=== PATIENT | male | born 1975 | race Hispanic/Latino ===

== ENCOUNTER 2024-08-12 18:04 | Emergency (ER) | payer OTHER ==
[2024-08-12 18:57] LABS: Specific Gravity 1.027 (1.005-1.030); Sqamous Epithelial <5 /HPF (None Seen); Urine Bacteria None Seen /HPF (<20); Urine Bilirubin NEGATIVE (Negative); Urine Blood 3+ (OVER) (Negative); Urine Clarity Extremely Turbid (Clear); Urine Color Light-Orange (Yellow); Urine Crystals Unidentified Few /HPF (None Seen); Urine Culture Reflex Order REFLEXED; Urine Glucose NEGATIVE (Negative); Urine Ketones 2+ (Negative); Urine Microscopic Reflex YN ORDER UMIC; Urine Mucus Slight /HPF (None Seen); Urine Nitrite 1+ (Negative); Urine Protein 2+ (Negative); Urine RBC >50 /HPF (None Seen); Urine Urobilinogen 2+ (Normal); Urine WBC >50 /HPF (<5); Urine WBC Clump Many /HPF (None Seen); Urine Yeast (Budding) Few /HPF (None Seen)
[2024-08-12 19:11] LABS: Albumin 3.4 g/dL (3.4-5.0); Albumin/Globulin Ratio 0.9 (1.1-1.8); Anion Gap 8.5 mEq/L (5.0-15.0); Bilirubin Total 0.9 mg/dL (0.2-1.0); Potassium 3.5 mEq/L (3.5-5.1); Protein, Total 7.4 g/dL (6.4-8.2)
[2024-08-12] MEDS ORDERED: NA CHLORIDE 0.9% 1,000 ML ONE (19:11)
[2024-08-12] MEDS ORDERED: ACETAMINOPHEN 500 MG TAB ONE (19:11)
[2024-08-12 19:13] LABS: Absolute Basophils 0.1 K/uL (0-0.5); Absolute Lymphocytes (CBC) 1.3 K/uL (0.7-4.9); Absolute Monocytes 1.6 K/uL (0.1-1.3); Absolute Neutrophil 20.1 K/uL (1.8-8.0); Basophils % 0.4 % (0-1.3); Eosinophils % 0.1 % (0-4.4); Hematocrit 34.5 % (39.6-49.0); Hemoglobin 10.4 g/dL (13.6-17.9); Lymphocytes % 5.7 % (15.3-44.8); MCV 66.8 fL (80-100); MPV 7.3 fL (7.6-11.3); Monocytes % 6.7 % (3.3-12.3); Neutrophils % 87.1 % (41.7-73.7); Platelets 383 thou/uL (152-406); RBC Red Blood Cell Count 5.17 M/uL (4.33-5.43); Red Cell Distribution Width 18.3 % (12.1-15.2)
--- NOTE | 2024-08-12 19:48 | RAD REPORT ---
EXAMINATION: CT ABDOMEN AND PELVIS WITH CONTRAST CLINICAL INDICATION: Male, 49 years old.ABD PAIN TECHNIQUE: CT abdomen and pelvis was performed, after the administration of IV contrast, as per [facility]. Axial, sagittal and coronal reconstructions were obtained. One or more of the following dose reduction techniques were used: Automated exposure control, adjustment of the mA and/o r kV according to patient size, and/or iterative reconstruction. Unless otherwise specified, incidental findings do not require dedicated imaging follow-up. [id number]. COMPARISON: No prior exam. FINDINGS: LOWER CHEST: The visualized lung bases are clear. LIVER: Hepatic steatosis. Low-density lesion in the right hepatic lobe measuring 11 mm is too small t o characterize. GALLBLADDER/BILE DUCT: Cholecystomy.? PANCREAS: No significant abnormality. SPLEEN: Low-density splenic lesion which is most consistent with a simple cyst. ADRENALS: Normal; no mass. KIDNEYS AND URETERS: Right upper pole renal cyst. No hydronephrosis. GASTROINTESTINAL TRACT: Status post Brenda-en-Y gastric bypass. . There is mild fluid present within th e excluded stomach but no bowel obstruction. PERITONEUM: No ascites. Fat-containing ventral hernias. Small fat-containing umbilical hernia. LYMPH NODES: No lymphadenopathy. ABDOMINAL AORTA AND OTHER VESSELS: Normal caliber aorta and IVC. URINARY BLADDER: Circumferential thickening of the bladder may be from chronic bladder outlet obstruc tion. REPRODUCTIVE ORGANS: Mild prostatomegaly. Prostate measures 5.5 cm in transverse dimension. MUSCULOSKELETAL: No acute or suspicious osseous abnormality. Severe degenerative changes are present at L3-4. ADDITIONAL FINDINGS: None. IMPRESSION: No acute or significant abnormalities seen in the abdomen or pelvis. Circumferentially thickened bladder which may be from chronic obstruction. Mild prostatomegaly. No hy dronephrosis. Brenda-en-Y gastric bypass without competition features.
[2024-08-12 20:34] LABS: Anisocytosis 1+; Blood Morphology Comment NOTED (NOT SEEN); Microcytosis 1+; Ovalocytes SLIGHT; Platelet Estimate ADEQ; Poikilocytosis SLIGHT; Polychromasia SLIGHT; White Blood Cell Scan OK (OK)
[2024-08-12] MEDS ORDERED: CEFTRIAXONE 1000 MG/VIAL ONE (20:41)
[2024-08-12 20:55] LABS: PT Prothrombin Time 16.5 SECONDS (9.4-12.5); PTT, Activated Partial Thromb 35.3 SECONDS (24.3-36.9); Protime INR 1.49
--- NOTE | 2024-08-12 21:42 | ER ---
Nurse's Notes [facility] Name: Greg Mcconnell Age: 49 yrs Sex: Male : 1975 Arrival Date: 08/12/2024 Time: 18:04 Bed 14 Private MD: Diagnosis: UTI/ Urinary tract infection, site not specified;Elevated white blood cell count Presentation: 08/12 18:10 Chief complaint: Patient states: had a tummy tuck years ago, has to wear a tight belt ko1 and I am having a hard time peeing. Coronavirus screen: At this time, the client does not indicate any symptoms associated with coronavirus-19. Ebola Screen: No symptoms or risks identified at this time. Initial Sepsis Screen: Does the patient meet any 2 criteria? No. Patient's initial sepsis screen is negative. Does the patient have a suspected source of infection? No. Patient's initial sepsis screen is negative. Risk Assessment: Do you want to hurt yourself or someone else? Patient reports no desire to harm self or others. Onset of symptoms was August 12, 2024. 18:10 Method Of Arrival: Wheelchair ko1 18:10 Acuity: YAMINI 3 ko1 Triage Assessment: 18:14 General: Appears in no apparent distress. Behavior is calm, cooperative, appropriate ko1 for age. Pain: Complains of pain in back and pelvis. Historical: - Allergies: 18:14 No Known Allergies; ko1 - PMHx: 18:14 Diabetes mellitus; Hypertensive disorder; ko1 - PSHx: 18:14 tummy tuck; Cholecystectomy; skin removal; gastric bypass; ko1 - Immunization history:: Adult Immunizations up to date. - Infectious Disease History:: Denies. - Social history:: Smoking status: Patient denies any tobacco usage or history of. Screenin:30 [facility] ED Fall Risk Assessment (Adult) History of falling in the last 3 months, tm6 including since admission No falls in past 3 months (0 pts) Confusion or Disorientation No (0 pts) Intoxicated or Sedated No (0 pts) Impaired Gait Yes (1 pt) Mobility Assist Device Used Yes (1 pt) Altered Elimination No (0 pt) Score/Fall Risk Level 0 - 2 = Low Risk Oriented to surroundings, Maintained a safe environment, Educated pt \T\ family on fall prevention, incl call for assistance when getting out of bed. Abuse screen: Denies threats or abuse. Denies injuries from another. Nutritional screening: No deficits noted. Tuberculosis screening: No symptoms or risk factors identified. Assessment: 18:30 General: Appears in no apparent distress. Behavior is calm, cooperative. Pain: tm6 Complains of pain in pelvis Pain currently is 4 out of 10 on a pain scale. Neuro: Level of Consciousness is awake, alert, obeys commands, Oriented to person, place, time, situation. Cardiovascular: Patient's skin is warm and dry. Respiratory: Airway is patent Respiratory effort is even, unlabored, Respiratory pattern is regular, symmetrical. GI: No signs and/or symptoms were reported involving the gastrointestinal system. Abdomen is obese. : Reports burning with urination. EENT: No signs and/or symptoms were reported regarding the EENT system. Derm: No signs and/or symptoms reported regarding the dermatologic system. Musculoskeletal: No signs and/or symptoms reported regarding the musculoskeletal system. Vital Signs: 18:10 BP 134 / 77; Pulse 102; Resp 17; Temp 97; Pulse Ox 98% ; ko1 19:00 BP 118 / 62; Pulse 89; Resp 16; Pulse Ox 98% ; me1 20:00 BP 126 / 59; Pulse 88; Resp 16; Pulse Ox 97% ; me1 21:00 BP 121 / 54; Pulse 84; Resp 16; Pulse Ox 98% ; me1 22:05 BP 124 / 55; Pulse 84; Resp 16; Temp 98.4; Pulse Ox 97% ; me1 ED Course: 18:07 Patient arrived in ED. ra3 18:12 Jennifer Jones FNP-C is [facility]. kb 18:12 Darío Lloyd MD is Attending Physician. kb 18:14 Triage completed. ko1 18:14 Arm band placed on right wrist. Patient placed in an exam room, Patient notified of ko1 wait time. 18:30 Patient has correct armband on for positive identification. Bed in low position. Call tm6 light in reach. Side rails up X 1. Provided Education on: use of call padgett. Client placed on continuous cardiac and pulse oximetry monitoring. NIBP monitoring applied. Pulse ox on. NIBP on. Door closed. Noise minimized. 18:48 Ike Brown RN is Primary Nurse. tm6 18:48 Inserted saline lock: 20 gauge in right antecubital area, using aseptic technique. tm6 Blood collected. Flushed with 10 mL NS. 18:48 CBC with Diff Sent. tm6 18:48 CMP Sent. tm6 18:48 Urinalysis w/ reflexes Sent. tm6 19:07 Urine Culture Sent. tm6 19:27 CT Abd/Pelvis - IV Contrast Only In Process Unspecified. EDMS 20:38 by me, sent to lab. First set of blood cultures drawn by me. me1 20:41 Blood Culture Adult (2) Sent. me1 20:41 Lactate w/ 2H reflex if indic. Sent. me1 20:41 Protime (+inr) Sent. me1 20:41 Ptt, Activated Sent. me1 20:45 Second set of blood cultures drawn by me. me1 21:18 EKG done, by ED staff, reviewed by Jennifer SPRAGUE. oe 22:07 No provider procedures requiring assistance completed. IV discontinued, intact, me1 bleeding controlled, No redness/swelling at site. Pressure dressing applied. Administered Medications: 19:14 Drug: NS 0.9% IV 1000 ml IV at 1 bolus Per protocol; to be given as a bolus over 60 tm6 minutes Route: IV; Rate: 1 bolus; Site: right antecubital; 22:06 Follow up: Response: No adverse reaction; IV Status: Completed infusion; IV Intake: me1 1000ml 19:14 Drug: Acetaminophen PO 1000 mg PO once Route: PO; tm6 20:42 Follow up: Response: No adverse reaction me1 20:48 Drug: Rocephin IV 1 grams IV at calculated rate once; give after blood cultures me1 obtained Route: IV; Rate: calculated rate; Site: right antecubital; 20:50 Follow up: Response: No adverse reaction; IV Status: Completed infusion me1 Medication: 18:30 VIS not applicable for this client. tm6 Intake: 22:06 IV: 1000ml; Total: 1000ml. me1 Outcome: 21:40 Discharge ordered by . gwyn 22:07 Discharged to home via wheelchair, with family, me1 22:07 Condition: stable 22:07 Discharge instructions given to patient, family, Instructed on discharge instructions, follow up and referral plans. medication usage, Demonstrated understanding of instructions, follow-up care, medications, Prescriptions given X 1, 22:07 Patient left the ED. me1 Addendum: 08/15/2024 18:44 Addendum: Culture Results: Positive urine culture. No further action required. Other: s s called and spoke with pt who states he feels 100% better, has no complaints at this time. OK with darío page to continue with initial discharge instructions. . Signatures: Dispatcher [employer] EDMS Jennifer Jones, HEDGE FUND ACCOUNTANT-C HEDGE FUND ACCOUNTANT-CkAnayeli Ghosh, RN RN Agus Summers Kathy RN RN ko1 Anabelle Curz RN PAIGE me1 Ike Brown RN RN 6 Lucita Rayo ra3 Corrections: (The following items were deleted from the chart) 08/12 18:16 18:14 PMHx: Hypothyroidism; ko1 ko1 18:16 18:14 PMHx: Hypothyroidism; ko1 ko1
--- NOTE | 2024-08-12 21:42 | EDPHYS ---
Physician Documentation [facility] Name: Greg Mcconnell Age: 49 yrs Sex: Male : 1975 Arrival Date: 08/12/2024 Time: 18:04 Bed 14 Private MD: ED Physician Darío Lloyd HPI: 08/12 18:57 This 49 yrs old Male presents to ER via Wheelchair with complaints of Urinary kb Problem. 18:57 Pt is a 49 year old male who presents for urinary frequency, dysuria, abd pain, and kb urinary incontinence that started this morning. States he has chronic back pain that is unchanged. Denies fever. . Historical: - Allergies: 18:14 No Known Allergies; ko1 - PMHx: 18:14 Diabetes mellitus; Hypertensive disorder; ko1 - PSHx: 18:14 tummy tuck; Cholecystectomy; skin removal; gastric bypass; ko1 - Immunization history:: Adult Immunizations up to date. - Infectious Disease History:: Denies. - Social history:: Smoking status: Patient denies any tobacco usage or history of. ROS: 18:56 Constitutional: As per HPI kb Exam: 18:56 Constitutional: This is a well developed, well nourished patient who is awake, alert, kb and in no acute distress. Head/Face: Normocephalic, atraumatic. ENT: Moist Mucous membranes Cardiovascular: Regular rate Respiratory: Respirations even and unlabored. No increased work of breathing. Talking in full sentences Skin: Warm, dry with normal turgor. Normal color. MS/ Extremity: Pulses equal, no cyanosis. Neurovascular intact. Full, normal range of motion. Neuro: Awake and alert, GCS 15, oriented to person, place, time, and situation. 18:56 Abdomen/GI: Inspection: obese Bowel sounds: normal, Palpation: soft, in all quadrants, mild abdominal tenderness, in the left lower quadrant, 21:46 ECG was reviewed by the Attending Physician. kb Vital Signs: 18:10 BP 134 / 77; Pulse 102; Resp 17; Temp 97; Pulse Ox 98% ; ko1 19:00 BP 118 / 62; Pulse 89; Resp 16; Pulse Ox 98% ; me1 20:00 BP 126 / 59; Pulse 88; Resp 16; Pulse Ox 97% ; me1 21:00 BP 121 / 54; Pulse 84; Resp 16; Pulse Ox 98% ; me1 22:05 BP 124 / 55; Pulse 84; Resp 16; Temp 98.4; Pulse Ox 97% ; me1 MDM: 18:12 Medical Screening Exam initiated kb 18:58 Data reviewed: vital signs, nurses notes. ED course: Urine was at bedside at time of kb evaluation. Urine is dark, cloudy and malodorous. . 21:39 Differential diagnosis: UTI, pyelonephritis, kidney stone. Consideration of kb Admission/Observation Escalation of care including admission/observation considered. admission considered and discussed with pt. Pt states her prefers to go home with oral antibiotics. VSS, afebrile, lactate normal. . Historians other than the Patient: Spouse/Significant Other: . Counseling: I had a detailed discussion with the patient and/or guardian regarding the historical points, exam findings, and any diagnostic results supporting the discharge/admit diagnosis, lab results, radiology results, the need for outpatient follow up, a family practitioner, to return to the emergency department if symptoms worsen or persist or if there are any questions or concerns that arise at home. 21:46 ED course: Discussed EKG findings with pt. . 08/12 18:32 Order name: CBC with Diff; Complete Time: 20:36 kb 08/12 18:32 Order name: CMP; Complete Time: 19:26 kb 08/12 18:32 Order name: Urinalysis w/ reflexes; Complete Time: 18:59 kb 08/12 19:00 Order name: Urine Culture EDNH 08/12 19:55 Order name: Blood Culture Adult (2) 08/12 19:55 Order name: Lactate w/ 2H reflex if indic.; Complete Time: 21:17 kb 08/12 19:55 Order name: Protime (+inr); Complete Time: 21:00 kb 08/12 19:55 Order name: Ptt, Activated; Complete Time: 21:00 kb 08/12 20:34 Order name: CBC Smear Scan; Complete Time: 20:36 EDNH 08/12 18:32 Order name: CT Abd/Pelvis - IV Contrast Only; Complete Time: 19:54 kb 08/12 19:55 Order name: EKG; Complete Time: 19:56 kb 08/12 18:32 Order name: IV Saline Lock; Complete Time: 18:48 kb 08/12 18:32 Order name: Labs collected and sent; Complete Time: 18:48 kb 08/12 19:55 Order name: Cardiac monitoring; Complete Time: 22:02 kb 08/12 19:55 Order name: EKG - Nurse/Tech; Complete Time: 22:02 kb 08/12 19:55 Order name: IV Saline Lock - Large Bore; Complete Time: 20:41 kb 08/12 19:55 Order name: O2 Per Protocol; Complete Time: 20:41 kb 08/12 19:55 Order name: O2 Sat Monitoring; Complete Time: 20:41 kb 08/12 19:55 Order name: Vital Signs; Complete Time: 20:41 kb EC:46 Rate is 81 beats/min. Rhythm is regular. QRS [place] is Normal. [place] interval is prolonged kb at 218 msec. QRS interval is normal at 1778 msec. QT interval is prolonged at 501 msec. Administered Medications: 19:14 Drug: NS 0.9% IV 1000 ml IV at 1 bolus Per protocol; to be given as a bolus over 60 tm6 minutes Route: IV; Rate: 1 bolus; Site: right antecubital; 22:06 Follow up: Response: No adverse reaction; IV Status: Completed infusion; IV Intake: me1 1000ml 19:14 Drug: Acetaminophen PO 1000 mg PO once Route: PO; tm6 20:42 Follow up: Response: No adverse reaction me1 20:48 Drug: Rocephin IV 1 grams IV at calculated rate once; give after blood cultures me1 obtained Route: IV; Rate: calculated rate; Site: right antecubital; 20:50 Follow up: Response: No adverse reaction; IV Status: Completed infusion me1 Disposition Summary: 08/12/24 21:40 Discharge Ordered Notes: Location: Home kb Condition: Stable kb Diagnosis - UTI/ Urinary tract infection, site not specified kb - Elevated white blood cell count kb Followup: kb - With: Emergency Department - When: As needed - Reason: Worsening of condition Followup: kb - With: Private Physician - When: 2 - 3 days - Reason: Recheck today's complaints, Continuance of care, Re-evaluation by your physician Discharge Instructions: - Discharge Summary Sheet kb - Urinary Tract Infection, Adult, Lypg-ft-Bruu kb Forms: - Medication Reconciliation Form kb - Antibiotic Education kb - Prescription Opioid Use kb - Patient Portal Instructions kb - Leadership Thank You Letter kb Prescriptions: - cefpodoxime 100 mg Oral Tablet - take 1 tablet ORAL route every 12 hours for 10 days take with food; 20 tablet; gwyn Refills: 0, Product Selection Permitted Signatures: Dispatcher [employer] Jennifer Colindres, SQL DATABASE DEVELOPER-C SQL DATABASE DEVELOPER-CkSiobhan Garber, RN RN ko1 Anabelle Cruz RN RN me1 Ike Brown RN RN tm6 Corrections: (The following items were deleted from the chart) 18:16 18:14 PMHx: Hypothyroidism; ko1 ko1 18:16 18:14 PMHx: Hypothyroidism; ko1 ko1 18:32 18:32 CBC+H.LAB.BRZ ordered. EDMS EDMS 18:32 18:32 COMPREHENSIVE METABOLIC PANEL+C.LAB.BRZ ordered. EDMS EDMS 18:32 18:32 Urinalysis+U.LAB.BRZ ordered. EDMS EDMS 18:32 18:32 Abdomen Pelvis W Con+CT.RAD.BRZ ordered. EDMS EDMS
[2024-08-12 22:45] VITALS: BP 124/55; TEMP 98.4; O2SAT 97
--- NOTE | 2024-08-16 12:07 | EKG ---
Test Date: 2024-08-12 Test Time: 21:04:26 Home Health Care Case Manager: DOROTEO MEASUREMENT RESULTS: Intervals: Rate: 81 [place]: 218 QRSD: 178 QT: 432 QTc: 501 [place]: P: 67 [place]: 218 QRS: -59 T: 58 INTERPRETIVE STATEMENTS: Sinus rhythm with 1st degree AV block Right bundle branch block Left anterior fascicular block Bifascicular block Abnormal ECG Compared to ECG 03/18/2012 02:26:14 First degree AV block now present Right bundle-branch block now present Left anterior fascicular block now present Bifascicular block now present Prolonged QT interval no longer present Electronically Signed On 08-16-24 12:04:36 SPINDLE FRAME CARVER by Roc Espino
== END 2024-08-12 22:07 | disposition home or self-care (01) ==
LOC: ER 18:04
DX: N39.0 Urinary tract infection, site not specified (principal); D72.829 Elevated white blood cell count, unspecified
CPT/HCPCS: 96361; 87040 ×2; 87088; 85025; 81001; 87086; 36415; 85610; 83605; 85730; 87077; 87186; 80053; 74177; 96374; 99285; Q9967; J7030; J0696; 93005